=== PATIENT | female | born 1960 | race Caucasian/White ===

== ENCOUNTER 2023-04-24 15:15 | Emergency (ER) | payer MEDICARE, OTHER ==
[~2023-04-24] VITALS: Ht 167.6 cm; Wt 83.9 kg
[2023-04-24 15:37] VITALS: BP 142/70
== END 2023-04-24 16:00 | disposition home or self-care (01) ==
LOC: EDSEX 15:15 → ER 15:15
DX: U07.1 COVID-19 (principal); Z88.8 Allergy status to other drugs, medicaments and biological substances
CPT/HCPCS: 99284